=== PATIENT | female | born 1975 | race Caucasian/White ===

== ENCOUNTER 2018-04-03 10:28 | Emergency (ER) | payer OTHER ==
[~2018-04-03] VITALS: Ht 170.2 cm; Wt 86.2 kg
[2018-04-03 10:40] VITALS: Ht 170.2 cm; Wt 86.2 kg
[2018-04-03 14:10] VITALS: BP 109/69
== END 2018-04-03 14:10 | disposition home or self-care (01) ==
LOC: ED 10:28
DX: M54.6 Pain in thoracic spine (principal)
CPT/HCPCS: 72072; J1885; J3010

== ENCOUNTER 2018-09-29 17:53 | Emergency (ER) | payer OTHER ==
[~2018-09-29] VITALS: Ht 170.2 cm; Wt 90.7 kg
[2018-09-29 18:15] VITALS: BP 141/86; Ht 170.2 cm; Wt 90.7 kg
[2018-09-29 20:30] LABS: PLATELET COUNT 313 x10^3mcL (130-400); RED CELL DISTRIBUTION WIDTH 13.5 % (11.5-14.5)
== END 2018-09-29 23:25 | disposition home or self-care (01) ==
LOC: ED 17:53
DX: O03.9 Complete or unspecified spontaneous abortion without complication (principal); Z98.890 Other specified postprocedural states
CPT/HCPCS: 36415

== ENCOUNTER 2018-11-05 08:22 | Inpatient (IN) | payer OTHER ==
[~2018-11-05] VITALS: Ht 170.2 cm; Wt 96.0 kg
[2018-11-05 08:28] VITALS: Ht 170.2 cm; Wt 96.0 kg
[2018-11-05 09:28] LABS: CALCIUM 8.6 mg/dL (8.5-10.1); CARBON DIOXIDE 24.7 mmol/L (21-32); CHLORIDE SERUM 106 mmol/L (98-107); GFR1 > 60 mL/min; GLUCOSE SERUM 107 mg/dL (74-106); POTASSIUM SERUM 3.9 mmol/L (3.5-5.1); SODIUM SERUM 139 mmol/L (136-145)
[2018-11-05 09:32] LABS: ALBUMIN 3.7 g/dL (3.4-5.0); ALKALINE PHOSPHATASE 78 U/L (46-116); ALT/SGPT 18 U/L (14-59); AST/SGOT 10 U/L (15-37); BILIRUBIN TOTAL 0.4 mg/dL (0.20-1.00); LIPASE 110 IU/L (73-393); TOTAL PROTEIN, SERUM 7.1 g/dL (6.4-8.2)
[2018-11-05 09:41] LABS: BASOPHIL % 0.2 % (0-2); PLATELET COUNT 241 x10^3mcL (130-400)
[2018-11-05 13:21] VITALS: BP 114/69
[2018-11-05 16:32] VITALS: BP 111/73
[2018-11-05 21:02] VITALS: BP 100/47
[2018-11-06 06:12] VITALS: BP 100/64
[2018-11-06 06:21] LABS: BASOPHIL % 0.3 % (0-2); PLATELET COUNT 194 x10^3mcL (130-400)
[2018-11-06 06:36] LABS: RED CELL DISTRIBUTION WIDTH 15.4 % (11.5-14.5)
[2018-11-06 06:46] LABS: CALCIUM 8.3 mg/dL (8.5-10.1); CHLORIDE SERUM 108 mmol/L (98-107); CREATININE SERUM 0.9 mg/dL (0.6-1.0); GFR1 > 60 mL/min; GLUCOSE SERUM 103 mg/dL (74-106); SODIUM SERUM 142 mmol/L (136-145)
[2018-11-06 08:18] VITALS: BP 101/63
[2018-11-06 11:50] VITALS: BP 105/63
[2018-11-06 13:24] VITALS: BP 105/63
[2018-11-06] MEDS ORDERED: NORCO1 TA2 PO (13:39)
== END 2018-11-06 15:02 | disposition home or self-care (01) | DRG 532 ==
LOC: ED 08:22 → MU 11:52
PROVIDERS: Emergency Medicine; ADMIT Internal Medicine Pulmonary Disease
DX: N83.202 Unspecified ovarian cyst, left side (principal); R58 Hemorrhage, not elsewhere classified
CPT/HCPCS: J1170; J1885; J2270; J2405; J3010; J7030; Q9967